=== PATIENT | male | born 1975 | race Caucasian/White ===

== ENCOUNTER → 2023-08-26 | Day surgery (SDC) | payer BC ==
[~2023-08-26] MED LIST: Lidocaine 1% PF 5 ML VIAL ONE; Sodium Bicarbonate 2.5 MEQ/5 ML VIAL ONE
[2023-08-26 13:52] VITALS: BP 152/94; TEMP 98.5
== END ==
LOC: ULT 12:43
PROVIDERS: ATTEND Family Medicine
PROC: 0G9G3ZX Drainage of Left Thyroid Gland Lobe, Percutaneous Approach, Diagnostic (ICD-10-PCS; principal; 2023-08-26)
DX: E04.1 Nontoxic single thyroid nodule (principal)
CPT/HCPCS: 10005; 88173

== ENCOUNTER 2023-11-07 08:57 | Day surgery (SDC) | payer BC ==
[2023-11-06 15:47] VITALS: BMI 32.3
[2023-11-07] MEDS ORDERED: Lidocaine 1% (PF) 30 ML VIAL ONE (10:12)
[2023-11-07] MEDS ORDERED: EPINEPHrine 1 MG/ML VIAL ONE (10:12)
[2023-11-07] MEDS ORDERED: Ondansetron PF 4 MG/2 ML Vial ONE ×2 (10:15→10:32)
[2023-11-07] MEDS ORDERED: PROPOFOL 20 ML ONE ×2 (10:15→10:17)
[2023-11-07] MEDS ORDERED: Midazolam HCl 2 mg/2 ml Vial ONE (10:15)
[2023-11-07] MEDS ORDERED: Lidocaine 1% PF 5 ML VIAL ONE ×2 (10:15→10:32)
[2023-11-07] MEDS ORDERED: fentaNYL PF 100 MCG/2 ML SYRINGE ONE (10:15)
[2023-11-07] MEDS ORDERED: Dexamethasone 20 MG/5 ML VIAL ONE ×2 (10:15→10:32)
[2023-11-07] MEDS ORDERED: Lidocaine 2% 6 ML (Jelly) SYR ONE (10:19)
[2023-11-07] MEDS ORDERED: ePHEDrine Sulfate 50 MG/10 ML VIAL ONE ×2 (10:32→11:14)
[2023-11-07] MEDS ORDERED: PHENYLEPHRINE-NS 100 MCG/ML 10 ML SYRINGE ONE ×2 (10:32→11:09)
[2023-11-07] MEDS ORDERED: PROPOFOL 200 MG/20 ML VIAL ONE (10:32)
[2023-11-07] MEDS ORDERED: CEFAZOLIN 1 GM VIAL ONE (10:50)
[2023-11-07] MEDS ORDERED: Sterile Water 20 ML ONE (10:51)
[2023-11-07] MEDS ORDERED: Lidocaine 1% MPF 2 ML VIAL ONE (12:32)
[2023-11-07] MEDS ORDERED: fentaNYL 50 mcg/mL 1 mL Vial ONE (13:17)
[2023-11-07] MEDS ORDERED: HYDROcodone/Acetaminophen 5/325 mg Tablet ONE (14:43)
== END 2023-11-07 15:11 | disposition home or self-care (01) ==
LOC: SDC 08:57
PROVIDERS: ATTEND Specialist
PROC: 0GTH0ZZ Resection of Right Thyroid Gland Lobe, Open Approach (ICD-10-PCS; principal; 2023-11-07)
DX: E07.9 Disorder of thyroid, unspecified (principal); E04.9 Nontoxic goiter, unspecified; Z87.891 Personal history of nicotine dependence; Z90.89 Acquired absence of other organs
CPT/HCPCS: 88307; 88331; 93005; 93010; C1889; J0171; J0690; J1100; J2001; J2250; J2405; J2704; J3010